=== PATIENT | male | born 1935 | race Caucasian/White ===

== ENCOUNTER 2018-02-02 01:10 | Inpatient (IN) | payer OTHER ==
[~2018-02-02] VITALS: Ht 185.4 cm; Wt 92.6 kg
[2018-02-02] VITALS (7 sets, daily range): BP systolic 128–169; BP diastolic 68–87
[~2018-02-02 01:10] MED LIST: CETIRIZINE HCL5 MG PO; HYTRIN1 MG PO; LISINOPRIL2.5 MG PO; PROVENTIL HFA6.7 GM IH; SIMVASTATIN5 MG PO; SYMBICORT60 INHALAT IH; [UNRECOGNIZED DRUG - OTHER] PO
[2018-02-02 01:42] LABS: HEMATOCRIT 37.6 % (38.0-50.0); MCH 32.1 PG (29.0-34.0); MCHC 34.6 G/DL (30.0-36.0); MCV 92.8 FL (86-99); PLATELET COUNT 149 K/uL (156-360); RBC DIS.WIDTH-CV 12.4 % (11.8-14.6); RBC DIS.WIDTH-SD 42.8 % (39-53); RED BLOOD COUNT 4.05 M/uL (4.00-5.50); WHITE BLOOD COUNT 7.6 K/uL (4.1-10.2)
[2018-02-02 02:03] LABS: ALBUMIN 3.8 g/dL (3.2-4.8)
[2018-02-02 02:04] LABS: CHLORIDE 103 mEq/L (99-109); POTASSIUM 3.7 mEq/L (3.7-5.4); SODIUM 141 mEq/L (136-147)
[2018-02-02 02:06] LABS: GLUCOSE 129 mg/dL (70-99); TOTAL PROTEIN 6.6 g/dL (6.4-8.3)
[2018-02-02 02:07] LABS: TROP-I INTERPRETATION NEGATIVE; TROPONIN-I 0.16 ng/mL (0.0-0.30)
[2018-02-02 02:08] LABS: TOTAL BILIRUBIN 1.5 mg/dL (0.0-1.0)
[2018-02-02 02:10] LABS: ALKALINE PHOSPHATASE 70 IU/L (3-129); CREATININE 1.1 mg/dL (0.6-1.3); GFR ESTIMATE (CALCULATED) > 59 mL/min/ (58.99-99999)
[2018-02-02 02:11] LABS: AST (GOT) 49 IU/L (2-34); UREA NITROGEN (BUN) 35 mg/dL (9-23)
[2018-02-02 02:13] LABS: ALT (GPT) 21 IU/L (3-49); CREATINE KINASE 1028 IU/L (1-294)
[2018-02-02 03:57] LABS: APPEARANCE CLOUDY ((CLEAR)); BILIRUBIN NEGATIVE; BLOOD LARGE; COLOR YELLOW ((YELLOW)); GLUCOSE (STRIP) NEGATIVE; KETONES 20; LEUKOCYTES LARGE; NITRITE NEGATIVE; PROTEIN (STRIP) 100; UROBILINOGEN 0.2 MG/DL (0.2-1.0)
[2018-02-02 04:02] LABS: BACTERIA 3+ /HPF; EPITHELIAL CELLS NONE SEEN /HPF; MUCUS 2+ /LPF; UCUL ADDED? YES; WHITE BLOOD CELLS TNTC /HPF (0-5)
[2018-02-02 08:22] LABS: TROP-I INTERPRETATION NEGATIVE; TROPONIN-I 0.25 ng/mL (0.0-0.30)
[2018-02-02 14:29] LABS: TROP-I INTERPRETATION NEGATIVE; TROPONIN-I 0.23 ng/mL (0.0-0.30)
[2018-02-02] MEDS ORDERED: OMEPRAZOLE20 MG PO (14:40)
[2018-02-02] MEDS ORDERED: SIMVASTATIN20 MG PO (14:41)
[2018-02-02] MEDS ORDERED: TERAZOSIN HCL5 MG PO (14:41)
[2018-02-02] MEDS ORDERED: AMLODIPINE BES2.5 MG PO (14:41)
[2018-02-02] MEDS ORDERED: PROAIR HFA8.5 GM IH (14:43)
[2018-02-02] MEDS ORDERED: TYLENOL EXTRA500 MG PO (14:43)
[2018-02-02] MEDS ORDERED: AMMONIUM LACTA224 GM TP (14:44)
[2018-02-02] MEDS ORDERED: LO-DOSE ASPIRIN81 M2 PO (14:47)
[2018-02-02] MEDS ORDERED: ARTIFICIAL TEAR15 M6 BOTH EYES (14:47)
[2018-02-02] MEDS ORDERED: CETIRIZINE HCL10 M2 PO (14:48)
[2018-02-02] MEDS ORDERED: VITAMIN D35000 UNIT PO (14:49)
[2018-02-02] MEDS ORDERED: B-121000 MC2 PO (14:49)
[2018-02-02] MEDS ORDERED: FLONASE16 G1 BOTH NARES (14:50)
[2018-02-02] MEDS ORDERED: DOCUSATE CALCI240 MG PO (14:50)
[2018-02-02] MEDS ORDERED: LATANOPROST2.5 ML BOTH EYES (14:51)
[2018-02-02] MEDS ORDERED: LUBRICANT EYE3.5 G2 BOTH EYES (14:55)
[2018-02-03 04:05] VITALS: BP 173/79
[2018-02-03 05:15] LABS: BASOPHIL (%) 0.3 % (0-1); EOSINOPHIL (%) 0.2 % (0-5); HEMATOCRIT 33.7 % (38.0-50.0); HEMOGLOBIN 11.1 G/DL (12.5-16.6); IMMATURE GRANULOCYTE (%) 0.2 % (0.0-0.7); LYMPHOCYTE (%) 12.6 % (15-42); LYMPHOCYTE COUNT 0.7 K/uL (1.0-2.8); MCH 31.7 PG (29.0-34.0); MCHC 32.9 G/DL (30.0-36.0); MCV 96.3 FL (86-99); MONOCYTE (%) 10.8 % (3-12); MONOCYTE COUNT 0.6 K/uL (0-0.8); NEUTROPHIL (%) 75.9 % (45-76); NEUTROPHIL COUNT 4.4 K/uL (1.8-6.4); PLATELET COUNT 144 K/uL (156-360); RBC DIS.WIDTH-CV 12.9 % (11.8-14.6); RBC DIS.WIDTH-SD 45.3 % (39-53); WHITE BLOOD COUNT 5.8 K/uL (4.1-10.2)
[2018-02-03 07:24] LABS: CHLORIDE 107 MEQ/L (99-109); CREATININE 0.7 MG/DL (0.6-1.3); GFR ESTIMATE (CALCULATED) > 59 mL/min/ (58.99-99999); MAGNESIUM 1.9 mg/dl (1.3-2.7); POTASSIUM 3.3 MEQ/L (3.7-5.4); SODIUM 145 MEQ/L (136-147); UREA NITROGEN (BUN) 24 mg/dL (9-23)
[2018-02-03 07:25] LABS: GLUCOSE 73 mg/dL (70-99)
[2018-02-03 07:45] VITALS: BP 177/89
[2018-02-03 11:32] VITALS: BP 162/90
[2018-02-03 19:30] VITALS: BP 137/77
[2018-02-03 23:46] VITALS: BP 154/88
[2018-02-04 04:18] VITALS: BP 158/80
[2018-02-04 10:00] VITALS: BP 163/77
[2018-02-04 12:00] VITALS: BP 144/68
[2018-02-04 16:00] VITALS: BP 130/71
[2018-02-04 19:15] VITALS: BP 108/63
[2018-02-05 00:15] VITALS: BP 156/83
[2018-02-05 04:26] VITALS: BP 145/82
[2018-02-05 08:02] LABS: CHLORIDE 101 MEQ/L (99-109); CREATININE 0.8 MG/DL (0.6-1.3); GFR ESTIMATE (CALCULATED) > 59 mL/min/ (58.99-99999); POTASSIUM 3.1 MEQ/L (3.7-5.4); UREA NITROGEN (BUN) 23 mg/dL (9-23)
[2018-02-05 08:07] LABS: GLUCOSE 102 mg/dL (70-99); SODIUM 137 MEQ/L (136-147)
[2018-02-05 08:09] VITALS: BP 136/77
[2018-02-05 11:33] VITALS: BP 149/75
[2018-02-05 15:42] VITALS: BP 170/80
[2018-02-05 20:30] VITALS: BP 132/73
[2018-02-06 00:59] VITALS: BP 141/80
[2018-02-06 07:50] LABS: CHLORIDE 105 MEQ/L (99-109); CREATININE 0.7 MG/DL (0.6-1.3); GFR ESTIMATE (CALCULATED) > 59 mL/min/ (58.99-99999); GLUCOSE 95 mg/dL (70-99); MAGNESIUM 1.8 mg/dl (1.3-2.7); POTASSIUM 3.4 MEQ/L (3.7-5.4); SODIUM 140 MEQ/L (136-147); UREA NITROGEN (BUN) 12 mg/dL (9-23)
[2018-02-06 08:10] VITALS: BP 124/67
[2018-02-06 16:06] LABS: HEMATOCRIT 37.2 % (38.0-50.0); HEMOGLOBIN 12.5 G/DL (12.5-16.6); MCH 30.9 PG (29.0-34.0); MCHC 33.6 G/DL (30.0-36.0); RBC DIS.WIDTH-CV 12.4 % (11.8-14.6); RBC DIS.WIDTH-SD 42.1 % (39-53); RED BLOOD COUNT 4.05 M/uL (4.00-5.50); WHITE BLOOD COUNT 4.4 K/uL (4.1-10.2)
[2018-02-06 16:07] LABS: MCV 91.9 FL (86-99); PLATELET COUNT 219 K/uL (156-360)
[2018-02-06 16:50] VITALS: BP 141/78
[2018-02-06 23:40] VITALS: BP 142/67
[2018-02-07 06:50] LABS: CHLORIDE 103 MEQ/L (99-109); CREATININE 0.7 MG/DL (0.6-1.3); GFR ESTIMATE (CALCULATED) > 59 mL/min/ (58.99-99999); GLUCOSE 106 mg/dL (70-99); POTASSIUM 3.4 MEQ/L (3.7-5.4); SODIUM 140 MEQ/L (136-147); UREA NITROGEN (BUN) 11 mg/dL (9-23)
[2018-02-07 07:35] VITALS: BP 154/71
[2018-02-07 16:58] VITALS: BP 142/76
[2018-02-08 09:06] VITALS: BP 137/76
[2018-02-08 09:55] LABS: FOLIC ACID (FOLATE) 16.1 NG/ML (5.0-22.0)
[2018-02-08 15:30] VITALS: BP 135/71
[2018-02-09 07:53] VITALS: BP 135/73
[2018-02-09 16:10] VITALS: BP 133/67
[2018-02-09 19:26] VITALS: BP 158/75
[2018-02-09 23:39] VITALS: BP 134/65
[2018-02-10 08:29] VITALS: BP 126/62
[2018-02-10 16:15] VITALS: BP 133/64
[2018-02-10 23:32] VITALS: BP 149/76
[2018-02-11 08:47] VITALS: BP 124/89
[2018-02-11] MEDS ORDERED: CEPHALEXIN500 MG PO (13:14)
== END 2018-02-11 17:39 | DRG 871 ==
LOC: EME → EDBD 01:10 → EME 01:10 → EDOF 04:52 → 3EAST 04:52 → 4EAST 04:52 → ENRESERV 04:57 → 4EAST 06:04 → ENRESERV 02-04 22:01 → 3EAST 02-04 23:40
PROVIDERS: Emergency Medicine; Hospitalist; Internal Medicine; Nurse Practitioner Adult Health
DX: A41.51 Sepsis due to Escherichia coli [E. coli] (principal); G93.41 Metabolic encephalopathy; M62.82 Rhabdomyolysis; R13.10 Dysphagia, unspecified; N10 Acute pyelonephritis; I10 Essential (primary) hypertension; E78.5 Hyperlipidemia, unspecified; J43.9 Emphysema, unspecified; N40.0 Benign prostatic hyperplasia without lower urinary tract symptoms; Z87.891 Personal history of nicotine dependence; K21.9 Gastro-esophageal reflux disease without esophagitis; R64 Cachexia; Z68.22 Body mass index [BMI] 22.0-22.9, adult; E87.6 Hypokalemia; I71.9 Aortic aneurysm of unspecified site, without rupture; R65.20 Severe sepsis without septic shock
CPT/HCPCS: 70450; 71045; 71275; 74230; 80048; 80053; 81003; 82140; 82306; 82550; 82550 91; 82607; 82746; 83605; 83735; 84443; 84484; 85025; 85027; 87040; 87077; 87086; 87186; 87493; 87801; 92526 GN; 92610 GN; 92611 GN; 93005; 94640; 94640 76; 97530 GO; 99281; 99285; J0360; J0696; J1644; J7030; S0028